=== PATIENT | male | born 1970 | race Caucasian/White ===

== ENCOUNTER 2020-01-05 17:31 | Emergency (ER) | payer OTHER, SELFPAY ==
--- NOTE | ~2020-01-05 | US_ITS ---
EXAMINATION:US venous doppler LE LT INDICATION:Left leg pain, swelling and redness TECHNIQUE: Multiple grayscale, color flow and Doppler images of the left lower extremity deep venous systems were obtained and reviewed. COMPARISON:08/21/2010 FINDINGS: The common femoral, superficial femoral and popliteal veins demonstrate normal respiratory variation, augmentation and compressibility. Color flow is also seen within the posterior tibial, pe roneal, greater saphenous and profunda veins. There are left inguinal lymph nodes, likely reactive. T here is superficial thrombosis in the left medial calf. IMPRESSION: 1: No lower extremity deep venous thrombosis. Reviewed, dictated and finalized at location A.
[2020-01-05 17:33] VITALS: BP 150/82; PULSE 97; RESP 16; TEMP 35.9; O2SAT 100
[2020-01-05 17:50] VITALS: BP 155/89; PULSE 85; RESP 18; O2SAT 100
--- NOTE | 2020-01-05 17:52 | ED.GENADULT ---
HPI - General Adult General Chief complaint: Extremity Injury, Lower Stated complaint: ?DVT in leg Time Seen by Provider: 01/05/20 17:52 Source: patient Mode of arrival: ambulatory Limitations: no limitations History of Present Illness HPI narrative: 39-year-old male patient presents the emergency department with complaints of left lower leg swelling, warmth and redness and pain for the past 5 days. Patient denies any fevers. Denies any injury to the lower leg that he can remember. Patient does have history of lymphedema. Patient states he has been working a lot lately and been sitting on his legs a lot. Patient states he called his primary doctor today and described the symptoms she was concerned about possible DVT and sent him here to the emergency department for further evaluation. Related Data Allergies Allergy/AdvReac Type Severity Reaction Status Date / Time No Known Allergies Allergy Verified 01/05/20 17:53 Review of Systems Review of Systems: Narrative: CONSTITUTIONAL: Denies fever, chills, or sweats. EYES: Denies visual changes, redness, or discharge. ENT: Denies rhinorrhea, congestion, sore throat, or otalgia. CARDIOVASCULAR: Denies chest pain, palpitations, or edema. RESPIRATORY: Denies cough or dyspnea. GASTROINTESTINAL: Denies abdominal pain, nausea, vomiting, or diarrhea. GENITOURINARY: Denies dysuria or hematuria. SKIN: Denies rash or itching. Positive redness, and pain to the left lower extremity MUSCULOSKELETAL: Denies back pain, joint pain, or myalgia. NEUROLOGIC: Denies headache, numbness, or weakness. PSYCHIATRIC: Denies anxiety or depression. PMFSH Comments At the time of my signature I agree with nursing past medical history, surgical, social, and family history. There is no relevant family history pertinent to the presenting complaint. Exam Narrative: Exam Narrative: GENERAL: Well-appearing, well-nourished, and in no acute distress. HEAD: Normocephalic, atraumatic. EYES: PERRLA and EOMI. ENT: Nares clear, no rhinorrhea or epistaxis. Mucous membranes moist. NECK: Supple. No lymphadenopathy CHEST: Clear to auscultation. No respiratory distress. HEART: Regular rate and rhythm. No murmur heard. Normal peripheral pulses. ABDOMEN: Soft, nontender, nondistended, normal active bowel sounds. EXTREMITIES: Normal range of motion. Patient has erythema, warmth noted to the inner aspect of the left lower extremity right above the ankle. There is no obvious open wound noted. The redness measures approximately 16 cm. SKIN: Warm, dry, no rash. NEURO: No focal deficits. Alert and oriented x3. Course Vital Signs Vital signs: Vital Signs Temperature 35.9 C L 01/05/20 17:33 Pulse Rate 97 01/05/20 17:33 Respiratory Rate 16 01/05/20 17:33 Blood Pressure 150/82 H 01/05/20 17:33 Pulse Oximetry 100 01/05/20 17:33 Temperature 35.9 C L 01/05/20 17:33 Pulse Rate 97 01/05/20 17:33 Respiratory Rate 16 01/05/20 17:33 Blood Pressure 150/82 H 01/05/20 17:33 Pulse Oximetry 100 01/05/20 17:33 Vital signs reviewed. The patient has been informed that they may have pre-hypertension or Hypertension based on a BP reading in the department. I recommend that the patient call the primary care provider listed on their discharge instructions or a physician of their choice this week to arrange follow up for further evaluation of possible pre-hypertension or Hypertension Medical Decision Making Differential Diagnosis Differential Diagnosis: Differential diagnosis: Abscess, cellulitis, hidradenitis, laceration, puncture wound, DVT Discussed with patient that his Doppler is negative for any DVTs. Discussed with patient that this does appear like a cellulitis infection therefore we will discharge him home with some antibiotics. Discussed with patient he should elevate the leg and may take Tylenol as needed for pain. Discussed with patient that if his redness or to the leg continues to get worse or spread or
[2020-01-05 18:39] LABS: Basophils Absolute Auto 0.1 K/mm3 (0.0-0.1); Basophils Percent Auto 0.8 % (0.2-1.2); Eosinophils Absolute Auto 0.2 K/mm3 (0-0.3); Eosinophils Percent Auto 2.5 % (0-4.4); Hematocrit 40.9 % (42.0-52.0); Hemoglobin 13.6 g/dL (14.0-18.0); Immature Granulocyte Absolute 0.02 K/mm3 (0.00-0.031); Immature Granulocyte Percent A 0.3 % (0-0.5); Lymphocytes Absolute Auto 1.07 K/mm3 (0.9-3.2); Lymphocytes Percent Auto 16.9 % (18.3-44.2); Mean Corpuscular HGB Conc 33.3 g/dl (32-36); Mean Corpuscular Hemoglobin 30.3 pg (26-34); Mean Corpuscular Volume 91.1 fl (80-100); Mean Platelet Volume 10.1 fl (7.4-10.4); Monocytes Absolute Auto 0.5 K/mm3 (0.1-0.6); Monocytes Percent Auto 7.1 % (2.6-8.5); Neutrophils Absolute Auto 4.6 K/mm3 (1.3-6.7); Neutrophils Percent Auto 72.4 % (45.5-73.1); Platelet Count Result 228 k/mm3 (150-375); Red Blood Count 4.49 M/mm3 (4.6-6.20); Red Cell Distribution Width 12.4 % (11.5-14.5); White Blood Count 6.3 K/mm3 (4.5-10.0)
[2020-01-05 18:51] LABS: Alanine Aminotransferase 31 U/L (4-50); Albumin Level 3.8 g/dL (3.5-5.1); Alkaline Phosphatase 74 U/L (38-126); Aspartate Amino Transferase 32 U/L (17-59); Bilirubin,Total 0.6 mg/dL (0.2-1.3); Blood Urea Nitrogen 20 mg/dL (9-20); Calcium 8.7 mg/dL (8.4-10.2); Carbon Dioxide 25 mmol/L (22-30); Chloride 106 mmol/L (98-107); Estimated CRCL calculation 164 ml/min; Estimated Glomerular Filt Rate > 60; Glucose 103 mg/dL (75-110); Sodium 138 mmol/L (137-145)
[2020-01-05 18:59] LABS: D Dimer 0.69 ug/mL (<0.48)
== END 2020-01-05 18:56 | disposition home or self-care (01) ==
PROVIDERS: Emergency Provider Nurse Practitioner Family; PCP Family Medicine
DX: L03.116 Cellulitis of left lower limb (principal); R03.0 Elevated blood-pressure reading, without diagnosis of hypertension
CPT/HCPCS: 36415; 80053; 85025; 85380; 85610; 93971; 99284